=== PATIENT | female | born 1990 | race Caucasian/White ===

== ENCOUNTER 2018-09-08 19:48 | Emergency (ER) | payer SELFPAY ==
[~2018-09-08] VITALS: Ht 160 cm; Wt 42.7 kg
[2018-09-08 20:02] VITALS: BP 98/73
[2018-09-08] MEDS ORDERED: PROP10TA73 PO (20:22)
[2018-09-08] MEDS ORDERED: MIRT30 PO (20:22)
== END 2018-09-09 00:30 | disposition left against medical advice (07) ==
LOC: EMS 19:50
DX: Z53.21 Procedure and treatment not carried out due to patient leaving prior to being seen by health care provider (principal)